=== PATIENT | female | born 1955 | race Caucasian/White ===

== ENCOUNTER 2025-04-02 16:19 | Emergency (ER) | payer SELFPAY ==
[2025-04-02 16:28] VITALS: BP 176/84; PULSE 89; RESP 16; TEMP 36.4; O2SAT 99; BMI 28.7
--- NOTE | 2025-04-02 18:38 | ED_ITS ---
HPI - Eye Problem General Chief complaint: Eye Problems Stated complaint: blurred vision rt eye went away wants chked out Time Seen by Provider: 04/02/25 18:14 Source: patient Mode of arrival: Ambulatory History of Present Illness HPI Narrative: 69-year-old female with no past medical history presents with sudden blurry vision in her right eye that lasted approximately 10-15 minutes and was painless. She had no other focal neurological deficits. She is completely back at baseline at this time. It was painless and did not feel like a curtain falling down. Related Data Allergies Allergy/AdvReac Type Severity Reaction Status Date / Time No Known Drug Allergies Allergy Verified 04/02/25 16:32 Review of Systems Review of Systems ROS Unobtainable: All systems reviewed & are unremarkable except as noted in HPI and below Patient History Smoking Status: Never smoker Exam Narrative Exam Narrative: General: Patient appears to be in no acute distress, acting appropriately Head: normocephalic, atraumatic, HEENT: Pupils equal round reactive, eyes tracking well, neck supple, no JVD Heart: regular rate and rhythm, no murmurs, rubs, or gallops heard Lungs: clear to auscultation, no adventitious sounds Abdomen: soft , nontender, nondistended, positive bowel sounds Neurological: no focal neurological signs, moving all extremities well, alert and oriented x3, Psych: good judgment ,good insight, mood is normal. Initial Vital Signs Initial Vital Signs: Vital Signs Temperature 97.6 F 04/02/25 16:28 Pulse Rate 89 04/02/25 16:28 Respiratory Rate 16 04/02/25 16:28 Blood Pressure 176/84 H 04/02/25 16:28 Pulse Oximetry 99 04/02/25 16:28 Oxygen Delivery Method Room Air 04/02/25 16:28 Course Vital Signs Vital signs: Vital Signs - 8 hr 04/02/25 16:28 Temperature 97.6 F Pulse Rate 89 Respiratory Rate 16 Blood Pressure 176/84 H Pulse Oximetry 99 Oxygen Delivery Method Room Air MDM - Eye Problem MDM Narrative Medical decision making narrative: 69-year-old female with sudden blurry vision in her right eye and now back to her baseline. She has no risk factors. Less concerning for a stroke today. Advised patient to take a baby aspirin in case there was a TIA. More likely dealing with a floater potentially. Patient does have an optometry follow up this week. Also advised to follow up with PCP for further evaluation and potential neurology referral as well. Come back sooner for any new symptoms. Discharge Plan Departure Patient Disposition: Home Clinical Impression: Blurred vision, right eye Instructions: DI for Eye Floaters Activity Restrictions/Additional Instructions: Keep eye appointment with fur grader this week. Come back to ER if any new symptoms such as one-sided weakness or new vision issues. Follow up with PCP for potential neurology referral to get further imaging done. Less concern for stroke today but in case there was a mini one go ahead and start a baby aspirin daily until seen by PCP 81 mg daily. Referrals: Emperatriz Laurent PA-C [Primary Care Provider, [facility]] Stand Alone Forms: Patient Portal/API
[2025-04-02 18:55] VITALS: BP 146/76; PULSE 72; RESP 18; TEMP 36.7; O2SAT 98
== END 2025-04-02 18:50 | disposition home or self-care (01) ==
PROVIDERS: Emergency Provider Family Medicine; PCP Physician Assistant Medical
DX: H53.8 Other visual disturbances (principal)
CPT/HCPCS: 99281